=== PATIENT | male | born 1955 | race African-American/Black ===

== ENCOUNTER 2018-03-04 14:50 | Emergency (ER) | payer MEDICARE, MEDICAID ==
[~2018-03-04] VITALS: Ht 162.6 cm; Wt 60.0 kg
[2018-03-04 14:56] VITALS: BP 134/83
== END 2018-03-04 17:49 | disposition left against medical advice (07) ==
LOC: ER 15:37
DX: L29.9 Pruritus, unspecified (principal); Z53.21 Procedure and treatment not carried out due to patient leaving prior to being seen by health care provider

== ENCOUNTER 2018-03-11 21:20 | Emergency (ER) | payer MEDICARE, MEDICAID ==
[~2018-03-11] VITALS: Ht 167.6 cm; Wt 69.0 kg
[2018-03-11] MEDS ORDERED: SODIUM CHLORIDE 0.9% 1,000 ML IV ONE (22:47)
[2018-03-11] MEDS ORDERED: METHYLPREDNISOLONE SOD SUCC 125 MG/2 ML VIAL IV STA (22:47)
[2018-03-11] MEDS ORDERED: KETOROLAC 30MG/ML VIAL IV STA (22:47)
[2018-03-11] MEDS ORDERED: MORPHINE SULFATE 4 MG/ML CPJ (NOT FOR IM USE) IV STA (22:47)
[2018-03-11] MEDS ORDERED: ONDANSETRON HCL 4MG/2ML INJ IV STA (22:47)
[2018-03-11] MEDS ORDERED: IPRATROPIUM/ALBUTEROL 0.5-3(2.5)MG/3ML NEB HHN ONE (23:00)
[2018-03-11 23:18] LABS: BASOPHILS % 0.7 % (0.0-2.0); HEMATOCRIT. 39.2 % (36.0-48.0); LYMPHOCYTES % 46.6 % (20.0-50.0); MEAN CORPUSCULAR HEMOGLOBIN 32.1 pg (28.0-32.0); MEAN CORPUSCULAR VOLUME 96.8 fL (81.0-99.0); MEAN PLATELET VOLUME 7.7 fl (7.4-10.4); MONOCYTES % 7.4 % (2.0-8.0); NEUTROPHILS % 42.3 % (40.0-76.0); PLATELET 301 x1000/uL (130-400); RED BLOOD CELL COUNT 4.05 mill/uL (4.2-5.4); RED CELL DISTRIBUTION WIDTH 13.8 % (11.6-14.6)
[2018-03-11 23:20] LABS: CHLORIDE 110 mEq/L (98-107)
[2018-03-11 23:25] LABS: PARTIAL THROMBOPLASTIN TIME 28.5 sec (23.4-31.0); PROTHROMBIN TIME 9.9 sec (9.1-11.1)
[2018-03-12 03:00] VITALS: BP 127/48
== END 2018-03-12 03:15 | disposition home or self-care (01) ==
LOC: EDSEX 22:04 → ER 22:04 → CANBEDREQ 03-12 07:18
DX: J40 Bronchitis, not specified as acute or chronic (principal); E86.0 Dehydration; I10 Essential (primary) hypertension; E11.9 Type 2 diabetes mellitus without complications; F17.200 Nicotine dependence, unspecified, uncomplicated; Z88.2 Allergy status to sulfonamides; Z88.5 Allergy status to narcotic agent; Z86.73 Personal history of transient ischemic attack (TIA), and cerebral infarction without residual deficits
CPT/HCPCS: 36415; 71045; 80053; 83880; 84484; 85025; 85610; 85730; 93005; 94640; 96361; 96374; 96375; 99285; 99406; J1885; J2270; J2405; J2930; J7030; J7620

== ENCOUNTER 2018-07-27 19:02 | Emergency (ER) | payer MEDICARE, MEDICAID ==
[~2018-07-27] VITALS: Ht 165.1 cm; Wt 64.0 kg
[~2018-07-27 19:02] MED LIST: AMLO-78 MT
[2018-07-28] MEDS ORDERED: KETOROLAC 30MG/ML VIAL IV STA (02:16)
[2018-07-28 03:17] LABS: BASOPHILS % 0.8 % (0.0-2.0); EOSINOPHILS % 3.5 % (0.0-5.0); HEMATOCRIT. 43.3 % (36.0-48.0); HEMOGLOBIN. 14.3 g/dL (12.0-16.0); LYMPHOCYTES % 47.2 % (20.0-50.0); MEAN CORPUSCULAR HEMOGLOBIN 31.9 pg (28.0-32.0); MEAN CORPUSCULAR VOLUME 96.3 fL (81.0-99.0); MEAN PLATELET VOLUME 8.1 fl (7.4-10.4); MONOCYTES % 10.5 % (2.0-8.0); PLATELET 296 x1000/uL (130-400)
[2018-07-28 03:19] LABS: CHLORIDE 108 mEq/L (98-107)
[2018-07-28 03:21] LABS: PROTHROMBIN TIME 9.8 sec (9.1-11.1)
[2018-07-28 04:48] VITALS: BP 110/63
== END 2018-07-28 05:00 | disposition home or self-care (01) ==
LOC: ER 19:02
DX: M62.838 Other muscle spasm (principal); R10.9 Unspecified abdominal pain; E11.9 Type 2 diabetes mellitus without complications; I10 Essential (primary) hypertension; Z88.5 Allergy status to narcotic agent; Z88.2 Allergy status to sulfonamides
CPT/HCPCS: 36415; 80053; 83690; 85025; 85610; 96374; 99283; J1885

== ENCOUNTER 2018-10-16 10:55 | Emergency (ER) | payer MEDICARE, MEDICAID ==
[~2018-10-16] VITALS: Ht 162.6 cm; Wt 62.0 kg
[2018-10-16 11:39] LABS: BASOPHILS % 0.9 % (0.0-2.0); EOSINOPHILS % 1.3 % (0.0-5.0); HEMATOCRIT. 39.8 % (36.0-48.0); HEMOGLOBIN. 13.6 g/dL (12.0-16.0); LYMPHOCYTES % 32.5 % (20.0-50.0); MEAN CORPUSCULAR HEMOGLOBIN 32.8 pg (28.0-32.0); MEAN CORPUSCULAR VOLUME 96.4 fL (81.0-99.0); MEAN PLATELET VOLUME 7.4 fl (7.4-10.4); NEUTROPHILS % 58.3 % (40.0-76.0); PLATELET 257 x1000/uL (130-400); RED BLOOD CELL COUNT 4.13 mill/uL (4.2-5.4)
[2018-10-16 11:45] LABS: CHLORIDE 110 mEq/L (98-107)
[2018-10-16 11:52] VITALS: BP 150/76
[2018-10-16] MEDS: KETOROLAC 30MG/ML VIAL IV STA (11:52)
[2018-10-16] MEDS: SODIUM CHLORIDE 0.9% 1,000 ML IV ONE (11:52)
[2018-10-16] MEDS: ONDANSETRON HCL 4MG/2ML INJ IV STA (11:52)
[2018-10-16 13:08] LABS: CLARITY URINE CLEAR (CLEAR); COLOR URINE YELLOW (YELLOW); KETONES URINE NEGATIVE (NEGATIVE); LEUKOCYTE ESTERASE URINE NEGATIVE (NEGATIVE); NITRITE URINE NEGATIVE (NEGATIVE); OCCULT BLOOD URINE NEGATIVE (NEGATIVE); PROTEIN URINE NEGATIVE (NEGATIVE); UROBILINOGEN URINE 0.2 E.U./dL (0.2-1.0)
== END 2018-10-16 13:38 | disposition home or self-care (01) ==
LOC: ER 10:55
DX: R10.11 Right upper quadrant pain (principal); M54.9 Dorsalgia, unspecified; E11.9 Type 2 diabetes mellitus without complications; I10 Essential (primary) hypertension; Z88.2 Allergy status to sulfonamides; Z88.5 Allergy status to narcotic agent
CPT/HCPCS: 36415; 74176; 80053; 81003; 83690; 85025; 96374; 96375; 99284; J1885; J2405; J7030

== ENCOUNTER 2018-12-17 17:01 | Emergency (ER) | payer MEDICARE, MEDICAID ==
[~2018-12-17] VITALS: Ht 165.1 cm; Wt 64.0 kg
[2018-12-17 17:38] VITALS: BP 136/60
[2018-12-17 19:12] LABS: CLARITY URINE TURBID (CLEAR); COLOR URINE RED (YELLOW); KETONES URINE 1+ (NEGATIVE); LEUKOCYTE ESTERASE URINE 2+ (NEGATIVE); NITRITE URINE POSITIVE (NEGATIVE); OCCULT BLOOD URINE NEGATIVE (NEGATIVE); PROTEIN URINE 1+ (NEGATIVE); SPECIFIC GRAVITY URINE 1.021 (1.005-1.030)
== END 2018-12-17 18:35 | disposition left against medical advice (07) ==
LOC: ER 17:01
DX: Z53.21 Procedure and treatment not carried out due to patient leaving prior to being seen by health care provider (principal)
CPT/HCPCS: 81025; 99283

== ENCOUNTER 2019-05-13 15:55 | Emergency (ER) | payer MEDICARE, MEDICAID ==
[~2019-05-13] VITALS: Ht 170.2 cm; Wt 85.0 kg
[2019-05-13 15:56] VITALS: BP 150/87
[2019-05-13] MEDS ORDERED: KETOROLAC 30MG/ML VIAL IM ONE (17:15)
== END 2019-05-13 18:45 | disposition home or self-care (01) ==
LOC: ER 15:55
DX: M79.605 Pain in left leg (principal); E11.9 Type 2 diabetes mellitus without complications; I10 Essential (primary) hypertension; Z86.73 Personal history of transient ischemic attack (TIA), and cerebral infarction without residual deficits; Z88.5 Allergy status to narcotic agent; Z88.2 Allergy status to sulfonamides
CPT/HCPCS: 96372; 99283; J1885

== ENCOUNTER 2023-04-21 11:44 | Emergency (ER) | payer MEDICARE, MEDICAID ==
[~2023-04-21] VITALS: Ht 167.6 cm; Wt 68.0 kg
[~2023-04-21 11:44] MED LIST changes: +AMLO-139 MT; -AMLO-78 MT
[2023-04-21 11:45] VITALS: BP 143/71; PULSE 107; RESP 16; TEMP 98.2; O2SAT 97
[2023-04-21] MEDS ORDERED: SODIUM CHLORIDE 0.9% 1,000 ML IV ONE (12:15)
[2023-04-21 12:20] LABS: BASOPHILS % 0.6 % (0.0-2.0); EOSINOPHILS % 0.3 % (0.0-5.0); HEMATOCRIT. 38.9 % (36.0-48.0); HEMOGLOBIN. 12.9 g/dL (12.0-16.0); LYMPHOCYTES % 28.2 % (20.0-50.0); MEAN CORPUSCULAR HGB CONC 33.1 g/dL (31.0-37.0); MEAN CORPUSCULAR VOLUME 93.7 fL (81.0-99.0); MEAN PLATELET VOLUME 7.2 fl (7.4-10.4); NEUTROPHILS % 59.9 % (40.0-76.0); PLATELET 290 x1000/uL (130-400); RED BLOOD CELL COUNT 4.15 mill/uL (4.2-5.4); RED CELL DISTRIBUTION WIDTH 13.2 % (11.6-14.6); WHITE BLOOD COUNT 3.7 x1000/uL (4.5-11.0)
[2023-04-21 12:40] LABS: ALBUMIN 4.1 g/dL (3.4-5.0); CARBON DIOXIDE 27 mEq/L (21-32); CHLORIDE 111 mEq/L (98-107); INDEX HEMOLYSI 1 (1-3); INDEX ICTERIC 1 (1-4); INDEX LIPEMIC 1 (1-3); POTASSIUM 3.4 mEq/L (3.5-5.1); SODIUM 142 mEq/L (136-145)
[2023-04-21 12:50] LABS: ALANINE AMINOTRANSFERASE 16 IU/L (13-61); ASPARTATE AMINOTRANSFERASE 16 IU/L (15-37); BILIRUBIN TOTAL 0.2 mg/dL (0.1-1.0); CREATINE KINASE 124 IU/L (26-192); CREATININE 0.8 mg/dL (0.6-1.3); ETHANOL BLOOD < 10 mg/dL (<10); GLUCOSE 118 mg/dL (70-105); TROPONIN I HIGH SENSITIVITY 5 ng/L (<54); UREA NITROGEN BLOOD 12 mg/dL (7-21)
[2023-04-21 17:41] LABS: CLARITY URINE CLEAR (CLEAR); COLOR URINE YELLOW (YELLOW); GLUCOSE URINE NEGATIVE (NEGATIVE); KETONES URINE NEGATIVE (NEGATIVE); LEUKOCYTE ESTERASE URINE NEGATIVE (NEGATIVE); NITRITE URINE NEGATIVE (NEGATIVE); OCCULT BLOOD URINE NEGATIVE (NEGATIVE); PH URINE 7.5 (4.5-8.0); PROTEIN URINE NEGATIVE (NEGATIVE); SPECIFIC GRAVITY URINE 1.011 (1.005-1.030); UROBILINOGEN URINE 0.2 E.U./dL (0.2-1.0)
[2023-04-21 18:01] LABS: *AMPHETAMINES SCREEN URINE NEGATIVE (NEGATIVE); *BARBITURATES SCREEN URINE NEGATIVE (NEGATIVE); *BENZODIAZEPINES SCREEN URINE NEGATIVE (NEGATIVE); *COCAINE SCREEN URINE PRESUMTIVE POSITIVE (NEGATIVE); CANNABINOID URINE SCREEN NEGATIVE (NEGATIVE); ECSTASY MDMA SCREEN URINE NEGATIVE (NEGATIVE); METHADONE URINE SCREEN NEGATIVE (NEGATIVE); OPIATES URINE SCREEN NEGATIVE (NEGATIVE); PHENCYCLIDINE URINE SCREEN PRESUMTIVE POSITIVE (NEGATIVE)
== END 2023-04-21 13:46 | disposition home or self-care (01) ==
LOC: ER 11:44
DX: F19.90 Other psychoactive substance use, unspecified, uncomplicated (principal); I10 Essential (primary) hypertension; E11.9 Type 2 diabetes mellitus without complications; Z88.2 Allergy status to sulfonamides; Z88.5 Allergy status to narcotic agent; Z86.73 Personal history of transient ischemic attack (TIA), and cerebral infarction without residual deficits
CPT/HCPCS: 80053; 80305; 81003; 80320; 82550; 85025; 84484; 36415; 71045; 70450; 93005; 96360; 96361; 99285; J7030; C1893; G0480

== ENCOUNTER 2024-02-20 16:07 | Inpatient (IN) | payer MEDICARE, MEDICAID ==
[~2024-02-20] VITALS: Ht 165.1 cm; Wt 63.7 kg
[2024-02-20 16:15] VITALS: O2SAT 98
[2024-02-20] MEDS: KETOROLAC 15MG/ML VIAL IV ONE ×2 (17:35→20:38)
[2024-02-20] MEDS: ONDANSETRON HCL 4MG/2ML INJ IV ONE (17:35)
[2024-02-20] MEDS: LACTATED RINGERS 1,000 ML IV SCH ×2 (17:35→22:29)
[2024-02-20 17:52] LABS: BASOPHILS % 0.8 % (0.0-2.0); EOSINOPHILS % 2.8 % (0.0-5.0); HEMATOCRIT. 39.1 % (36.0-48.0); LYMPHOCYTES % 29.7 % (20.0-50.0); MEAN CORPUSCULAR HEMOGLOBIN 32.6 pg (28.0-32.0); MEAN CORPUSCULAR HGB CONC 33.3 g/dL (31.0-37.0); MEAN CORPUSCULAR VOLUME 97.9 fL (81.0-99.0); MEAN PLATELET VOLUME 7.2 fl (7.4-10.4); MONOCYTES % 6.7 % (2.0-8.0); PLATELET 249 x1000/uL (130-400); WHITE BLOOD COUNT 5.6 x1000/uL (4.5-11.0)
[2024-02-20 17:57] LABS: CHLORIDE 113 mEq/L (98-107); POTASSIUM 3.5 mEq/L (3.5-5.1); SODIUM 142 mEq/L (136-145)
[2024-02-20 17:58] LABS: CALCIUM 9.1 mg/dL (8.7-10.4); CARBON DIOXIDE 24 mEq/L (21-32)
[2024-02-20 18:03] LABS: CREATININE 0.9 mg/dL (0.6-1.0); GLUCOSE 164 mg/dL (70-105); UREA NITROGEN BLOOD 12 mg/dL (9-23)
[2024-02-20 18:05] LABS: ALANINE AMINOTRANSFERASE 9 IU/L (10-49); ALBUMIN 4.3 g/dL (3.2-4.8); ASPARTATE AMINOTRANSFERASE 15 IU/L (<34); BILIRUBIN TOTAL 0.4 mg/dL (0.1-1.0); PROTEIN TOTAL 6.6 g/dL (6.0-8.3)
[2024-02-20 20:00] VITALS: BP 180/84; PULSE 88; RESP 18; TEMP 35.66952; O2SAT 98
[2024-02-20] MEDS ORDERED: ACETAMINOPHEN 325MG TABLET PO PRN (20:30)
[2024-02-20] MEDS ORDERED: DOCUSATE SODIUM 100MG CAPSULE PO PRN (20:30)
[2024-02-20] MEDS ORDERED: NITROGLYCERIN 0.4MG TABLET SL SL PRN (20:30)
[2024-02-20] MEDS ORDERED: ONDANSETRON HCL 4MG/2ML INJ IV PRN (20:30)
[2024-02-20] MEDS ORDERED: GUAIFENESIN 200MG/10ML SUGAR FREE UDC PO PRN (20:30)
[2024-02-20] MEDS ORDERED: MAGNESIUM/ALUMINUM HYDROXIDE/SIMETHICONE 30ML UDC PO PRN (20:30)
[2024-02-20] MEDS: MORPHINE SULFATE 4 MG/ML INJ (FOR IV/IM USE) IV ONE (20:37)
[2024-02-20 21:48] LABS: IRON 40 ug/dL (50-170); TRIGLYCERIDE 164 mg/dL (0-150)
[2024-02-20 21:49] LABS: LDL CHOLESTEROL 88 mg/dL (5-100)
[2024-02-20 21:50] LABS: CHOLESTEROL 137 mg/dL (<200); HDL CHOLESTEROL 34 mg/dL (>65)
[2024-02-20 21:51] LABS: TOTAL IRON BINDING CAPACITY 276 ug/dl (250-425)
[2024-02-20 21:53] LABS: T4 FREE 0.73 ng/dL (0.89-1.76)
[2024-02-20 21:58] LABS: FOLIC ACID (FOLATE) SERUM > 20.00 ng/mL (>5.38)
[2024-02-20 21:59] LABS: VITAMIN B12 SERUM 300 pg/mL (211-911)
[2024-02-20 22:04] LABS: ETHANOL BLOOD < 10 mg/dL (<10)
[2024-02-20] MEDS: SUCRALFATE 1G TABLET PO SCH (22:27)
[2024-02-20] MEDS: ENOXAPARIN 40MG/0.4ML SYR SUBCUT SCH (22:27)
[2024-02-20] MEDS: PANTOPRAZOLE SODIUM 40 MG/VIAL IV SCH (22:27)
[2024-02-20] MEDS: CLONIDINE 0.1MG TABLET PO PRN (22:28)
[2024-02-20] MEDS: KETOROLAC 15MG/ML VIAL IV PRN (22:29)
[2024-02-21] VITALS: BP 129/51; PULSE 88; RESP 18; TEMP 36.78072; O2SAT 97
[2024-02-21 00:06] VITALS: BP 180/84; PULSE 88; RESP 18; TEMP 36.0288
[2024-02-21] MEDS ORDERED: HYDR-4009 MT (01:04)
[2024-02-21] MEDS ORDERED: TOPUD PO (01:04)
[2024-02-21 01:05] LABS: *AMPHETAMINES SCREEN URINE NEGATIVE (NEGATIVE); *BARBITURATES SCREEN URINE NEGATIVE (NEGATIVE); *BENZODIAZEPINES SCREEN URINE NEGATIVE (NEGATIVE); *COCAINE SCREEN URINE PRESUMPTIVE POSITIVE (NEGATIVE); CANNABINOID URINE SCREEN NEGATIVE (NEGATIVE); ECSTASY MDMA SCREEN URINE NEGATIVE (NEGATIVE); METHADONE URINE SCREEN NEGATIVE (NEGATIVE); OPIATES URINE SCREEN PRESUMPTIVE POSITIVE (NEGATIVE); PHENCYCLIDINE URINE SCREEN PRESUMTIVE POSITIVE (NEGATIVE)
[2024-02-21 06:43] LABS: CHLORIDE 114 mEq/L (98-107); POTASSIUM 3.5 mEq/L (3.5-5.1); SODIUM 145 mEq/L (136-145)
[2024-02-21 06:46] LABS: CARBON DIOXIDE 25 mEq/L (21-32)
[2024-02-21 06:47] LABS: CALCIUM 8.5 mg/dL (8.7-10.4)
[2024-02-21 06:50] LABS: BASOPHILS % 0.4 % (0.0-2.0); EOSINOPHILS % 4.5 % (0.0-5.0); HEMATOCRIT. 37.4 % (36.0-48.0); HEMOGLOBIN. 12.1 g/dL (12.0-16.0); LYMPHOCYTES % 58.2 % (20.0-50.0); MEAN CORPUSCULAR HEMOGLOBIN 31.7 pg (28.0-32.0); MEAN CORPUSCULAR HGB CONC 32.4 g/dL (31.0-37.0); MEAN CORPUSCULAR VOLUME 97.7 fL (81.0-99.0); MONOCYTES % 9.1 % (2.0-8.0); NEUTROPHILS % 27.8 % (40.0-76.0); PLATELET 233 x1000/uL (130-400); RED BLOOD CELL COUNT 3.83 mill/uL (4.2-5.4); RED CELL DISTRIBUTION WIDTH 13.2 % (11.6-14.6); WHITE BLOOD COUNT 5.2 x1000/uL (4.5-11.0)
[2024-02-21 06:51] LABS: CREATININE 0.8 mg/dL (0.6-1.0)
[2024-02-21 06:52] LABS: GLUCOSE 84 mg/dL (70-105); UREA NITROGEN BLOOD 12 mg/dL (9-23)
[2024-02-21 06:53] LABS: ALANINE AMINOTRANSFERASE 8 IU/L (10-49)
[2024-02-21 06:54] LABS: ALBUMIN 3.7 g/dL (3.2-4.8); ASPARTATE AMINOTRANSFERASE 13 IU/L (<34); BILIRUBIN TOTAL 0.3 mg/dL (0.1-1.0); PHOSPHORUS 3.6 mg/dL (2.5-4.9); PROTEIN TOTAL 5.6 g/dL (6.0-8.3)
[2024-02-21 08:00] VITALS: BP 135/63; PULSE 79; RESP 20; TEMP 36.6696; O2SAT 97
[2024-02-21 12:00] VITALS: BP 140/68; PULSE 76; RESP 20; TEMP 36.28068; O2SAT 97
[2024-02-21 16:00] VITALS: BP 142/61; PULSE 72; RESP 20; TEMP 36.3918; O2SAT 99
[2024-02-21 20:00] VITALS: BP 119/62; PULSE 78; RESP 19; TEMP 36.44736; O2SAT 98
[2024-02-22] VITALS: BP 128/77; PULSE 63; RESP 16; TEMP 36.22512; O2SAT 100
[2024-02-22] MEDS: ZOLPIDEM TARTRATE 5MG TABLET PO PRN (00:31)
[2024-02-22] MEDS: ACETAMINOPHEN 325MG TABLET PO PRN (02:19)
[2024-02-22 04:00] VITALS: BP 157/69; PULSE 62; RESP 19; TEMP 36.9474; O2SAT 99
[2024-02-22 08:00] VITALS: BP 144/82; PULSE 64; RESP 19; TEMP 36.05844; O2SAT 99
[2024-02-22 12:00] VITALS: BP 148/74; PULSE 62; RESP 18; TEMP 36.3918; O2SAT 97
[2024-02-22] MEDS ORDERED: KETOROLAC 15MG/ML VIAL IV PRN (18:45)
[2024-02-22 20:00] VITALS: BP 169/85; PULSE 79; RESP 18; TEMP 36.33624; O2SAT 99
[2024-02-23] VITALS: BP 141/79; PULSE 70; RESP 16; TEMP 36.55848; O2SAT 98
[2024-02-23 04:00] VITALS: BP 161/71; PULSE 79; RESP 18; TEMP 36.3918; O2SAT 99
[2024-02-23 08:00] VITALS: BP 128/73; PULSE 75; RESP 18; TEMP 36.3918; O2SAT 97
[2024-02-23 12:00] VITALS: BP 143/63; PULSE 82; RESP 19; TEMP 36.50292; O2SAT 97
[2024-02-23 16:00] VITALS: BP 157/72; PULSE 85; RESP 18; TEMP 36.61404; O2SAT 97
[2024-02-24] MEDS ORDERED: FAMOTIDINE 20MG/2ML VIAL IV SCH (09:00)
== END 2024-02-23 17:56 | disposition home or self-care (01) | DRG 392 ==
LOC: ER 16:07 → 5WST 19:41 → EDBEDREQTM 19:43 → EDBEDREQ 19:43 → 6EST 21:11
PROVIDERS: ADMIT Internal Medicine; ATTEND Internal Medicine
DX: K29.70 Gastritis, unspecified, without bleeding (principal); E11.9 Type 2 diabetes mellitus without complications; D25.9 Leiomyoma of uterus, unspecified; I10 Essential (primary) hypertension; F14.10 Cocaine abuse, uncomplicated; Z86.73 Personal history of transient ischemic attack (TIA), and cerebral infarction without residual deficits; Z79.899 Other long term (current) drug therapy
CPT/HCPCS: 36415; 74176; 80053; 80061; 80305; 80320; 82607; 82746; 83036; 83540; 83550; 83735; 84100; 84439; 84443; 85025; 93306; 93970; 97162; 97165; 99285; J1650; J1885; J2270; J2405; J2470; G0480

== ENCOUNTER 2024-04-04 17:28 | Emergency (ER) | payer MEDICARE, MEDICAID ==
[~2024-04-04] VITALS: Ht 165.1 cm; Wt 58.0 kg
[~2024-04-04 17:28] MED LIST changes: +HYDR-4009 MT
[2024-04-04 17:33] VITALS: BP 130/51; PULSE 73; RESP 18; TEMP 98.1; O2SAT 99
== END 2024-04-04 20:49 | disposition left against medical advice (07) ==
LOC: ER 17:28
DX: R10.84 Generalized abdominal pain (principal); Z53.21 Procedure and treatment not carried out due to patient leaving prior to being seen by health care provider